=== PATIENT | male | born 1955 | race Caucasian/White ===

== ENCOUNTER 2019-08-18 15:36 | Emergency (ER) | payer OTHER, SELFPAY ==
[2019-08-18 15:41] VITALS: BP 185/97; PULSE 96; RESP 20; TEMP 36.8; O2SAT 99
--- NOTE | 2019-08-18 15:44 | DI.RAD.S_ITS ---
PROCEDURE: XR CHEST 1V INDICATIONS: palpatations TECHNIQUE: One view of the chest was acquired. COMPARISON: None. FINDINGS: Surgical changes and devices: None. Lungs and pleura: Lungs are clear. No pleural effusions or pneumothorax. Mediastinum: Mediastinal contours appear normal. Heart size is normal. Bones and chest wall: No suspicious bony lesions. Overlying soft tissues appear unremarkable. IMPRESSION: No acute cardiopulmonary process is evident. Dictated by: Jeff Raman M.D. on 08/18/2019 at 15:01 Approved by: Jeff Raman M.D. on 08/18/2019 at 15:10
[2019-08-18 16:06] VITALS: BP 194/93; PULSE 99; RESP 20; O2SAT 97
[2019-08-18 16:09] LABS: Add Manual Diff / Slide Review NO; Basophils Absolute Auto 100 /uL (0-100); Basophils Percent Auto 0.9 % (0-2); Eosinophils Absolute Auto 200 /uL (0-450); Eosinophils Percent Auto 3.4 % (2-4); Hematocrit 41.9 % (41-53); Hemoglobin 14.2 g/dL (13.5-17.5); Lymphocytes Absolute Auto 2100 /uL (1100-4500); Lymphocytes Percent Auto 31.3 % (25-40); Mean Corpuscular HGB Conc 33.9 % (30-36); Mean Corpuscular Hemoglobin 29.9 PG (26-34); Mean Corpuscular Volume 88.4 fL (80-100); Monocytes Absolute Auto 900 /uL (0-900); Monocytes Percent Auto 14.1 % (3-14); Neutrophils Absolute Auto 3300 /uL (1500-7000); Neutrophils Percent Auto 50.3 % (50-75); Platelet Count 182 X10^3/uL (150-400); Red Blood Cell Count 4.74 X10^6/uL (4.5-5.9); Red Cell Distribution Width 12.9 % (11.6-14.8); White Blood Cell Count 6.6 X10^3/uL (4.5-11.0)
--- NOTE | 2019-08-18 16:17 | ED_ITS ---
HPI - Arrhythmia/Palpitations <SANJEEV Negrete - Last Filed: 08/18/19 19:48> General Chief Complaint: Arrhythmia/Palpitations Stated Complaint: Buzzing in chest, don't feel right Time Seen by Provider: 08/18/19 15:52 Source: patient Mode of arrival: Ambulatory Limitations: no limitations History of Present Illness HPI narrative: The patient is a 63-year-old male with history of hypertension and appendicitis with surgery on 04/16 of last year who presents with a chief complaint of ?buzzing in my chest.He denies any chest pain, shortness of breath, fevers nausea vomiting or diarrhea. He states he generally just does not ?feel right and states he feels ?on edge since he woke up today. He takes lisinopril and atorvastatin daily, states he does not take any other medication s. He was recently treated for urinary tract infection, but states he felt like he was coming back a few days ago. He states he had finished his course of Macrobid, but then had an extra sample done to make sure that he had no infection. He states he recently drove from [place] at his other home to [facility] and arrived yesterday. He has been self isolating at home, denies any sick contacts. He states he is very active, rode bikes 6000 miles a year and swims a lot. He denies any specific pain, shortness of breath, nausea vomiting diarrhea abdominal pain swelling of the extremities were palpitations. He states he has a vague anxiety history. Related Data Previous Rx's Medication Instructions Recorded hydroxyzine pamoate 50 mg PO TID PRN #14 cap 08/18/19 Review of Systems <SANJEEV Negrete - Last Filed: 08/18/19 19:48> Review of Systems Narrative: GENERAL: Denies chills, fatigue, malaise, fever, sweats. HEENT: Denies sinus pain, ear pain, sore throat, difficulty swallowing, dizziness. RESPIRATORY: Denies dyspnea, cough, wheezing, hemoptysis, sputum. CARDIOVASCULAR: See HPI GASTROINTESTINAL: Denies nausea, vomiting, abdominal pain, diarrhea, constipation, melena. : Denies dysuria, frequency, incontinence, hematuria, urinary retention. MUSCULOSKELETAL: denies weakness, joint pain, or bony pain SKIN: Denies rash, skin lesions, or other NEUROLOGIC: Denies weakness, headache, numbness, change in speech, confusion, seizures, incoordination. PSYCHIATRIC: No concerning psychosocial issues. 12 point review of systems is negative except for those stated above Patient History <JENNIFER Negrete - Last Filed: 08/18/19 19:48> Social History Smoking Status: Never smoker Smoking Status: Never smoker Exam <JENNIFER Negrete - Last Filed: 08/18/19 19:48> Narrative Exam Narrative: GENERAL: This is a well-nourished, well-developed patient, appears anxious HEAD: Atraumatic. Normocephalic. No temporal or scalp tenderness. EYES: Pupils equal round and reactive. Extraocular motions intact. No scleral icterus. No injection or drainage. ENT: Nose without bleeding, purulent drainage or septal hematoma. Throat without erythema, tonsillar hypertrophy or exudate. Uvula midline. Airway patent. NECK: Trachea midline. No JVD or lymphadenopathy. Supple, nontender, no meningeal signs. CARDIOVASCULAR: Regular rate and rhythm without murmurs, gallops, or rubs. RESPIRATORY: Clear to auscultation. Breath sounds equal bilaterally. No wheezes, rales, or rhonchi. No cough. No increased respiratory effort accessory muscle use GASTROINTESTINAL: Abdomen soft, non-tender, nondistended. No hepato- splenomegaly, or palpable masses. No guarding. EXTREMITIES: No clubbing, cyanosis, or edema. No joint tenderness, effusion, or edema noted. BACK: Nontender without deformity or crepitance. No flank tenderness. NEURO: AOx3. SKIN: No rash or erythema. Initial Vital Signs Initial Vital Signs: Vital Signs Temperature 98.2 F 08/18/19 15:41 Pulse Rate 96 H 08/18/19 15:41 Respiratory Rate 08/18/19 15:41 Blood Pressure 185/97 H 08/18/19 15:41 Pulse Oximetry 99 08/18/19 15:41 <Gem Blanco DO - Last Filed: 08/22/19 07:14> Initial Vital Signs Initial Vital Signs: Vital Signs Temperature 98.2 F 08/18/19 15:41 Pulse Rate 96 H 08/18/19 15:41 Respiratory Rate 08/18/19 15:41 Blood Pressure 185/97 H 08/18/19 15:41 Pulse Oximetry 99 08/18/19 15:41 Scores <JENNIFER Negrete - Last Filed: 08/18/19 19:48> GCS Jay coma scale eye opening: Spontaneous Jay coma scale verbal response: Orientated [place] coma scale motor response: Obey commands Jay coma scale total score: 15 Course <JENNIFER Negrete - Last Filed: 08/18/19 19:48> Orders Ordered: Discontinued Medications Hydroxyzine Pamoate (Vistaril) 50 mg PO NOW ONE Stop: 08/18/19 17:02 Last Admin: 08/18/19 17:12 Dose: 50 mg Documented by: MYRNA Sodium Chloride (Normal Saline 0.9%) 1,000 mls @ 150 mls/hr IV CONT PEDRO Last Infusion: 08/18/19 19:35 Dose: 0 mls/hr Documented by: Admin: 08/18/19 17:13 Dose: 150 mls/hr Documented by: MYRNA Reevaluation(s) Reevaluation #1: Patient states that he feels much improved and feels like he is no longer ?buzzing? after a single dose of hydroxyzine. I discussed waiting for 2nd troponin to help rule out acute cardiac event. Patient states understanding. Discussed pending urine culture. Patient currently denies any urinary symptoms, we will wait for culture to treat. Patient is okay with this plan. Time: 18:00 Vital Signs Vital signs: Vital Signs - 8 hr 08/18/19 15:41 08/18/19 16:06 08/18/19 17:00 Temperature 98.2 F Pulse Rate 96 H 99 H 85 Respiratory Rate 20 20 12 Blood Pressure 185/97 H Blood Pressure [Right Arm] 194/93 H 157/70 H Pulse Oximetry 99 97 98 08/18/19 17:30 08/18/19 18:30 08/18/19 19:36 Temperature Pulse Rate 81 77 89 Respiratory Rate 16 17 19 Blood Pressure 145/66 H Blood Pressure [Right Arm] 144/69 H 135/64 Pulse Oximetry 98 97 98 <Gem Blanco DO - Last Filed: 08/22/19 07:14> Orders Ordered: Discontinued Medications Hydroxyzine Pamoate (Vistaril) 50 mg PO NOW ONE Stop: 08/18/19 17:02 Last Admin: 08/18/19 17:12 Dose: 50 mg Documented by: MYRNA Sodium Chloride (Normal Saline 0.9%) 1,000 mls @ 150 mls/hr IV CONT PEDRO Last Infusion: 08/18/19 19:35 Dose: 0 mls/hr Documented by: Admin: 08/18/19 17:13 Dose: 150 mls/hr Documented by: MYRNA Vital Signs Vital signs: Vital Signs - 8 hr 08/18/19 15:41 08/18/19 16:06 08/18/19 17:00 Temperature 98.2 F Pulse Rate 96 H 99 H 85 Respiratory Rate 20 20 12 Blood Pressure 185/97 H Blood Pressure [Right Arm] 194/93 H 157/70 H Pulse Oximetry 99 97 98 08/18/19 17:30 08/18/19 18:30 08/18/19 19:36 Temperature Pulse Rate 81 77 89 Respiratory Rate 16 17 19 Blood Pressure 145/66 H Blood Pressure [Right Arm] 144/69 H 135/64 Pulse Oximetry 98 97 98 MDM - Arrhythmia/Palpitations <JENNIFER Negrete - Last Filed: 08/18/19 19:48> Lab Data Attestation: I reviewed the patient's lab results. Result diagrams: 08/18/19 15:58 08/18/19 15:58 Labs: Lab Results 08/18/19 08/18/19 08/18/19 Range/Units 15:58 15:58 15:58 WBC 6.6 (4.5-11.0) X10^3/uL RBC 4.74 (4.5-5.9) X10^6/uL Hgb 14.2 (13.5-17.5) g/dL Hct 41.9 (41-53) % MCV 88.4 (80-100) fL MCH 29.9 (26-34) PG MCHC 33.9 (30-36) % RDW 12.9 (11.6-14.8) % Plt Count 182 (150-400) X10^3/uL Neut % (Auto) 50.3 (50-75) % Lymph % (Auto) 31.3 (25-40) % Jerome % (Auto) 14.1 H (3-14) % Eos % (Auto) 3.4 (2-4) % Baso % (Auto) 0.9 (0-2) % Neut # (Auto) 3300 (9006-6159) /uL Lymph # (Auto) 2100 (0930-2743) /uL Jerome # (Auto) 900 (0-900) /uL Eos # (Auto) 200 (0-450) /uL Baso # (Auto) 100 (0-100) /uL D-Dimer (<230) ng/mL Sodium 137 (137-145) mmol/L Potassium 3.9 (3.4-5.1) mmol/L Chloride 103 (98-107) mmol/L Carbon Dioxide 24 (22-32) mmol/L BUN 16 (9-20) mg/dL Creatinine 0.90 (0.66-1.25) mg/dL Estimated GFR > 60.0 (>60) mL/min BUN/Creatinine Ratio 17.8 (6-22) Glucose 91 (80-110) mg/dL Calcium 9.3 (8.4-10.2) mg/dL Total Bilirubin 0.6 (0.2-1.3) mg/dL AST 37 (17-59) IU/L ALT 29 (<50) IU/L Alkaline Phosphatase 69 (38-126) U/L Total Creatine Kinase 150 (55-170) U/L CK-MB (CK-2) 2.20 (<2.37) ng/mL CK-MB (CK-2) Rel Index 1.5 (1.5-5.0) % Troponin I < 0.012 (0.01-0.034) ng/mL NT-Pro-B Natriuret Pep 43 (<125) pg/mL Total Protein 8.7 H (6.3-8.2) g/dL Albumin 5.0 (3.5-5.0) g/dL Globulin 3.7 (1.7-4.1) g/dL Albumin/Globulin Ratio 1.4 (1.0-2.8) Lipase 213 (23-300) U/L Urine RBC (0-5/HPF) Urine WBC (0-5/HPF) Ur Squamous Epith Cells (0-5/HPF) Urine Bacteria (None) Ur Culture Indicated? 08/18/19 08/18/19 08/18/19 Range/Units 15:58 16:15 18:15 WBC (4.5-11.0) X10^3/uL RBC (4.5-5.9) X10^6/uL Hgb (13.5-17.5) g/dL Hct (41-53) % MCV (80-100) fL MCH (26-34) PG MCHC (30-36) % RDW (11.6-14.8) % Plt Count (150-400) X10^3/uL Neut % (Auto) (50-75) % Lymph % (Auto) (25-40) % Jerome % (Auto) (3-14) % Eos % (Auto) (2-4) % Baso % (Auto) (0-2) % Neut # (Auto) (6774-1484) /uL Lymph # (Auto) (9640-6924) /uL Jerome # (Auto) (0-900) /uL Eos # (Auto) (0-450) /uL Baso # (Auto) (0-100) /uL D-Dimer < 200 (<230) ng/mL Sodium (137-145) mmol/L Potassium (3.4-5.1) mmol/L Chloride (98-107) mmol/L Carbon Dioxide (22-32) mmol/L BUN (9-20) mg/dL Creatinine (0.66-1.25) mg/dL Estimated GFR (>60) mL/min BUN/Creatinine Ratio (6-22) Glucose (80-110) mg/dL Calcium (8.4-10.2) mg/dL Total Bilirubin (0.2-1.3) mg/dL AST (17-59) IU/L ALT (<50) IU/L Alkaline Phosphatase (38-126) U/L Total Creatine Kinase 135 (55-170) U/L CK-MB (CK-2) 1.92 (<2.37) ng/mL CK-MB (CK-2) Rel Index 1.4 L (1.5-5.0) % Troponin I < 0.012 (0.01-0.034) ng/mL NT-Pro-B Natriuret Pep (<125) pg/mL Total Protein (6.3-8.2) g/dL Albumin (3.5-5.0) g/dL Globulin (1.7-4.1) g/dL Albumin/Globulin Ratio (1.0-2.8) Lipase (23-300) U/L Urine RBC None seen (0-5/HPF) Urine WBC 1-5/hpf (0-5/HPF) Ur Squamous Epith Cells 0-1 /hpf (0-5/HPF) Urine Bacteria Occasional (0-1) (None) Ur Culture Indicated? Specimen cultured Urine Dip Bedside Urine Glucose Negative Bedside Urine Bilirubin - Negative Bedside Urine Ketone - Negative Urine Specific Lamont 1.010 Bedside Urine Occult Blood - Negative Bedside Urine pH 6.0 Bedside Urine Protein - Negative Bedside Urine Urobilinogen - Negative Bedside Urine Nitrite - Negative Bedside Urine Leukocytes +/- 15 Esterase Imaging Data Chest x-ray: Attestation: I personally reviewed and interpreted this imaging study as follows: Radiologist's Impresson: [address] [place] [id number] XRay Report Signed Patient: Steve BunnMR#: [id number] : 8Acct:[id number] Age/Sex: 63 / MDate of Service: 08/18/19 Loc: ED Accession Number: [id number] Procedure: XR chest 1V Ordering Provider: Gem Blanco D.O. PROCEDURE: XR CHEST 1V INDICATIONS: palpatations TECHNIQUE: One view of the chest was acquired. COMPARISON: None. FINDINGS: Surgical changes and devices: None. Lungs and pleura: Lungs are clear. No pleural effusions or pneumothorax. Mediastinum: Mediastinal contours appear normal. Heart size is normal. Bones and chest wall: No suspicious bony lesions. Overlying soft tissues appear unremarkable. IMPRESSION: No acute cardiopulmonary process is evident. Dictated by: Jeff Raman M.D. on 08/18/2019 at 15:01 Approved by: Jeff Raman M.D. on 08/18/2019 at 15:10 ECG Data Attestation: I personally reviewed and interpreted this ECG as follows: Interpretation: Sinus tachycardia. Ventricular rate 102. P.r. interval 188. QRS duration 92. viewed by Dr Blanco [facility] Narrative Medical decision making narrative: The patient is a 63-year-old male who presents with a chief complaint of ?buzzing in my chest.His EKG shows no acute findings, his initial troponin is negative. I did try a dose of hydroxyzine as the patient stated he had some anxiety and that helped improve the bulging in his chest. His 2nd troponin also came back negative. Chest x-ray shows no acute findings. Given his recent travel, did get a D-dimer to evaluate for PE which came back negative. I discussed at length coming back to the emergency department for any acute concerns of following up with primary care provider in the next 3 days. Of note the patient's urine is going for culture, though he has no symptoms at this point time so we will hold off on culture for treatment. Patient has no questions or concerns upon discharge and states understanding of return precautions as well as follow-up care. <Gem Blanco, DO - Last Filed: 08/22/19 07:14> Lab Data Labs: Lab Results 08/18/19 08/18/19 08/18/19 Range/Units 15:58 15:58 15:58 WBC 6.6 (4.5-11.0) X10^3/uL RBC 4.74 (4.5-5.9) X10^6/uL Hgb 14.2 (13.5-17.5) g/dL Hct 41.9 (41-53) % MCV 88.4 (80-100) fL MCH 29.9 (26-34) PG MCHC 33.9 (30-36) % RDW 12.9 (11.6-14.8) % Plt Count 182 (150-400) X10^3/uL Neut % (Auto) 50.3 (50-75) % Lymph % (Auto) 31.3 (25-40) % Jerome % (Auto) 14.1 H (3-14) % Eos % (Auto) 3.4 (2-4) % Baso % (Auto) 0.9 (0-2) % Neut # (Auto) 3300 (8169-5802) /uL Lymph # (Auto) 2100 (9180-9289) /uL Jerome # (Auto) 900 (0-900) /uL Eos # (Auto) 200 (0-450) /uL Baso # (Auto) 100 (0-100) /uL D-Dimer (<230) ng/mL Sodium 137 (137-145) mmol/L Potassium 3.9 (3.4-5.1) mmol/L Chloride 103 (98-107) mmol/L Carbon Dioxide 24 (22-32) mmol/L BUN 16 (9-20) mg/dL Creatinine 0.90 (0.66-1.25) mg/dL Estimated GFR > 60.0 (>60) mL/min BUN/Creatinine Ratio 17.8 (6-22) Glucose 91 (80-110) mg/dL Calcium 9.3 (8.4-10.2) mg/dL Total Bilirubin 0.6 (0.2-1.3) mg/dL AST 37 (17-59) IU/L ALT 29 (<50) IU/L Alkaline Phosphatase 69 (38-126) U/L Total Creatine Kinase 150 (55-170) U/L CK-MB (CK-2) 2.20 (<2.37) ng/mL CK-MB (CK-2) Rel Index 1.5 (1.5-5.0) % Troponin I < 0.012 (0.01-0.034) ng/mL NT-Pro-B Natriuret Pep 43 (<125) pg/mL Total Protein 8.7 H (6.3-8.2) g/dL Albumin 5.0 (3.5-5.0) g/dL Globulin 3.7 (1.7-4.1) g/dL Albumin/Globulin Ratio 1.4 (1.0-2.8) Lipase 213 (23-300) U/L Urine RBC (0-5/HPF) Urine WBC (0-5/HPF) Ur Squamous Epith Cells (0-5/HPF) Urine Bacteria (None) Ur Culture Indicated? 08/18/19 08/18/19 08/18/19 Range/Units 15:58 16:15 18:15 WBC (4.5-11.0) X10^3/uL RBC (4.5-5.9) X10^6/uL Hgb (13.5-17.5) g/dL Hct (41-53) % MCV (80-100) fL MCH (26-34) PG MCHC (30-36) % RDW (11.6-14.8) % Plt Count (150-400) X10^3/uL Neut % (Auto) (50-75) % Lymph % (Auto) (25-40) % Jerome % (Auto) (3-14) % Eos % (Auto) (2-4) % Baso % (Auto) (0-2) % Neut # (Auto) (6540-2296) /uL Lymph # (Auto) (0516-7367) /uL Jerome # (Auto) (0-900) /uL Eos # (Auto) (0-450) /uL Baso # (Auto) (0-100) /uL D-Dimer < 200 (<230) ng/mL Sodium (137-145) mmol/L Potassium (3.4-5.1) mmol/L Chloride (98-107) mmol/L Carbon Dioxide (22-32) mmol/L BUN (9-20) mg/dL Creatinine (0.66-1.25) mg/dL Estimated GFR (>60) mL/min BUN/Creatinine Ratio (6-22) Glucose (80-110) mg/dL Calcium (8.4-10.2) mg/dL Total Bilirubin (0.2-1.3) mg/dL AST (17-59) IU/L ALT (<50) IU/L Alkaline Phosphatase (38-126) U/L Total Creatine Kinase 135 (55-170) U/L CK-MB (CK-2) 1.92 (<2.37) ng/mL CK-MB (CK-2) Rel Index 1.4 L (1.5-5.0) % Troponin I < 0.012 (0.01-0.034) ng/mL NT-Pro-B Natriuret Pep (<125) pg/mL Total Protein (6.3-8.2) g/dL Albumin (3.5-5.0) g/dL Globulin (1.7-4.1) g/dL Albumin/Globulin Ratio (1.0-2.8) Lipase (23-300) U/L Urine RBC None seen (0-5/HPF) Urine WBC 1-5/hpf (0-5/HPF) Ur Squamous Epith Cells 0-1 /hpf (0-5/HPF) Urine Bacteria Occasional (0-1) (None) Ur Culture Indicated? Specimen cultured Urine Dip Bedside Urine Glucose Negative Bedside Urine Bilirubin - Negative Bedside Urine Ketone - Negative Urine Specific Lamont 1.010 Bedside Urine Occult Blood - Negative Bedside Urine pH 6.0 Bedside Urine Protein - Negative Bedside Urine Urobilinogen - Negative Bedside Urine Nitrite - Negative Bedside Urine Leukocytes +/- 15 Esterase Discharge Plan Departure Patient Disposition: Home Clinical Impression: Atypical chest pain Discharge Date/Time: 08/18/19 19:37 Instructions: DI for Atypical Chest Pain, DI for Anxiety -- Adult, DI for Chest Pain Activity Restrictions/Additional Instructions: Thank you for trusting us with your care today. I am not exactly sure why you had a buzzing sensation in your chest. Today your evaluation came back well your lab work had no acute findings, your chest x-ray came back well, your blood clot test came back negative. I sent a prescription of hydroxyzine for anxiety to [facility] in [place] as that seemed to help you relax today Please come back to emergency department for any acute concerns such as chest pain, shortness of breath, concern of heart attack stroke etcetera Please follow-up with primary care provider in the next few days Prescriptions: New hydroxyzine pamoate 50 mg capsule 50 mg PO TID PRN (Reason: anxiety) Qty: 14 RF: 0
[2019-08-18 16:24] LABS: Alanine Aminotransferase 29 IU/L (<50); Albumin Globulin Ratio 1.4 (1.0-2.8); Alkaline Phosphatase 69 U/L (38-126); Aspartate Aminotransferase 37 IU/L (17-59); BUN Creatinine Ratio 17.8 (6-22); Bilirubin Total 0.6 mg/dL (0.2-1.3); Blood Urea Nitrogen 16 mg/dL (9-20); Calcium 9.3 mg/dL (8.4-10.2); Carbon Dioxide 24 mmol/L (22-32); Chloride 103 mmol/L (98-107); Creatine Kinase 150 U/L (55-170); Estimated Glomerular Filt Rate > 60.0 mL/min (>60); Globulin 3.7 g/dL (1.7-4.1); Glucose 91 mg/dL (80-110); HEMOLYSIS 33 (0-50); Lipase 213 U/L (23-300); Potassium 3.9 mmol/L (3.4-5.1); Sodium 137 mmol/L (137-145); Total Protein 8.7 g/dL (6.3-8.2)
[2019-08-18 16:29] LABS: D Dimer < 200 ng/mL (<230)
[2019-08-18 16:29] LABS: RBC Urine None Seen (0-5/HPF)
[2019-08-18 16:33] LABS: NT-proBNP (BNP-Adult 18+) 43 pg/mL (<125)
[2019-08-18 16:36] LABS: Troponin I < 0.012 ng/mL (0.01-0.034)
[2019-08-18 16:37] LABS: Bacteria Urine Occasional (0-1); Culture Indicated Urine Specimen Cultured; Squamous Epithelial Cell Urine 0-1 /HPF (0-5/HPF); WBC Urine 1-5/HPF (0-5/HPF)
[2019-08-18 16:39] LABS: CKMB % Relative Index 1.5 % (1.5-5.0)
[2019-08-18 17:00] VITALS: BP 157/70; PULSE 85; RESP 12; O2SAT 98
[2019-08-18] MEDS: hydrOXYzine pamoate 25 MG CAPSULE 50 MG PO (17:12)
[2019-08-18] MEDS: SODIUM CHLORIDE 0.9% 1,000 ML 150 ML IV (17:13)
[2019-08-18 17:30] VITALS: BP 144/69; PULSE 81; RESP 16; O2SAT 98
[2019-08-18 18:30] VITALS: BP 135/64; PULSE 77; RESP 17; O2SAT 97
[2019-08-18 18:47] LABS: Creatine Kinase 135 U/L (55-170)
[2019-08-18 19:00] LABS: Troponin I < 0.012 ng/mL (0.01-0.034)
[2019-08-18 19:03] LABS: CKMB % Relative Index 1.4 % (1.5-5.0); Creatine Kinase MB 1.92 ng/mL (<2.37)
[2019-08-18 19:36] VITALS: BP 145/66; PULSE 89; RESP 19; O2SAT 98
== END 2019-08-18 19:37 | disposition home or self-care (01) ==
PROVIDERS: Emergency Medicine; Emergency Provider Nurse Practitioner Family
DX: R07.89 Other chest pain (principal); R00.2 Palpitations; I10 Essential (primary) hypertension
CPT/HCPCS: 36415; 71045; 80053; 81003; 81015; 82550; 82553; 83690; 83880; 84484; 85025; 85379; 87086; 93005; 96360; 96361; 99284

== ENCOUNTER → 2020-01-20 13:46 | Outpatient (CLI) | payer OTHER, SELFPAY | PROVIDERS: Visit Provider Physician Assistant | DX: R30.0 Dysuria (principal) | CPT/HCPCS: 87086 ==

== ENCOUNTER 2023-02-22 07:36 | Emergency (ER) | payer MEDICARE, OTHER, SELFPAY ==
[2023-02-22 07:54] VITALS: PULSE 91; RESP 18; O2SAT 97
--- NOTE | 2023-02-22 07:56 | ED_ITS ---
HPI - General Adult General Chief complaint: Chest Pain Stated complaint: SOB/ chest pain Time Seen by Provider: 02/22/23 07:52 Source: patient Mode of arrival: Ambulatory Limitations: no limitations History of Present Illness HPI narrative: Patient is a 67-year-old male who for the past several days has had chest discomfort and progressively worsening shortness of breath. He denies cough, no sore throat, he did have some chills last evening but no specific fevers. He states he has had chest discomfort in the past and has a has been attributed to anxiety. He does state that he is under quite a bit of anxiety as his has been the last month in the hospital. He contacted his doctor who advised that he come to the emergency department for evaluation. Last Monday he was having chest discomfort and was evaluated by EMS. He states they did an EKG however was not transported to the hospital. He denies any lower extremity swelling. No abdominal pain, nausea vomiting or urinary symptoms. Related Data Home Medications Medication Instructions Recorded Confirmed lisinopril 10 mg tablet 10 mg PO BID 08/21/20 08/21/20 rosuvastatin 20 mg tablet 20 mg PO DAILY 08/21/20 08/21/20 Allergies Allergy/AdvReac Type Severity Reaction Status Date / Time No Known Drug Allergies Allergy Verified 08/21/20 14:59 Review of Systems Constitutional Constitutional: Reports system reviewed and no additional complaints, except as documented Cardiovascular Cardiovascular: Reports system reviewed and no additional complaints, except as documented Respiratory Respiratory: Reports system reviewed and no additional complaints, except as documented Gastrointestinal Gastrointestinal: Reports system reviewed and no additional complaints, except as documented Genitourinary Genitourinary: Reports system reviewed and no additional complaints, except as documented Integumentary/Breasts Skin/Breast: Reports system reviewed and no additional complaints, except as documented Neurologic Neurologic: Reports system reviewed and no additional complaints, except as documented Hematologic/Lymphatic On Anticoagulants: No Patient History Surgical History (Updated 09/13/20 @ 20:59 by Jazmine Maldonado) Anesthesia S/P appendectomy (04/16/19) Family History Father Heart disease Mother No problems noted. Social History Smoking Status: Never smoker Smoking Status: Never smoker Exam Initial Vital Signs Initial Vital Signs: Vital Signs Temperature 98.3 F 02/22/23 08:05 Pulse Rate 86 02/22/23 08:05 Respiratory Rate 18 02/22/23 08:05 Blood Pressure 160/91 H 02/22/23 08:05 Pulse Oximetry 97 02/22/23 08:05 Oxygen Delivery Method Room Air 02/22/23 08:05 Const General: cooperative, comfortable and No ill appearing HENMT Head: normal to inspection and normocephalic Resp Effort & Inspection: normal respiratory effort Auscultation: clear to auscultation bilaterally Cardio Rate: regular rate Rhythm: regular rhythm GI Inspection: normal to inspection Skin General: no rashes or lesions noted Neuro General: patient alert, patient awake and moves all extremities Extrem General: No edema Scores HEART Score Heart Score history: Slightly Suspicious Heart Score EKG: Normal Heart Score Age: > or = 65 years old Heart Score risk factors: 1-2 risk factors Heart Score troponin: < or = to normal limit Heart Score Total: 3 Course Orders Ordered: ED Orders 02/22/23 07:54 Complete Blood Count AUTO DIFF Stat Comprehensive Metabolic Panel Stat D Dimer Stat Lipase Stat Troponin & CK Cardiac Panel Stat 02/22/23 07:56 XR chest 1V Stat EKG-12 Lead Stat 02/22/23 08:16 Covid-19 + FLU A/B + RSV - PCR Stat Vital Signs Vital signs: Vital Signs - 8 hr 02/22/23 08:05 Temperature 98.3 F Pulse Rate 86 Respiratory Rate 18 Blood Pressure 160/91 H Pulse Oximetry 97 Oxygen Delivery Method Room Air Medical Decision Making Lab Data Lab results reviewed: Yes I reviewed the patient's lab results. 02/22/23 07:54 02/22/23 07:54 Labs: Lab Results 02/22/23 02/22/23 Range/Units 07:54 08:16 WBC 7.6 (4.5-11.0) X10^3/uL RBC 5.01 (4.5-5.9) X10^6/uL Hgb 15.2 (13.5-17.5) g/dL Hct 43.3 (41-53) % MCV 86.5 (80-100) fL MCH 30.3 (26-34) PG MCHC 35.0 (30-36) % RDW 12.4 (11.6-14.8) % Plt Count 211 (150-400) X10^3/uL Neut % (Auto) 61.0 (50-75) % Lymph % (Auto) 25.7 (25-40) % Phillips % (Auto) 10.3 (3-14) % Eos % (Auto) 2.2 (2-4) % Baso % (Auto) 0.8 (0-2) % Neut # (Auto) 4700 (4293-7232) /uL Lymph # (Auto) 2000 (0954-3752) /uL Phillips # (Auto) 800 (0-900) /uL Eos # (Auto) 200 (0-450) /uL Baso # (Auto) 100 (0-100) /uL D-Dimer < 215 (<500) ng/ml Sodium 136 L (137-145) mmol/L Potassium 3.9 (3.4-5.1) mmol/L Chloride 102 (98-107) mmol/L Carbon Dioxide 25 (22-32) mmol/L BUN 15 (9-20) mg/dL Creatinine 0.85 (0.66-1.25) mg/dL Estimated GFR > 60 (>60) mL/min BUN/Creatinine Ratio 17.6 (6-22) Glucose 100 (80-110) mg/dL Calcium 9.8 (8.4-10.2) mg/dL Total Bilirubin 0.8 (0.2-1.3) mg/dL AST 28 (17-59) IU/L ALT 30 (<50) IU/L Alkaline Phosphatase 57 (38-126) U/L Total Creatine Kinase 164 (55-170) U/L Troponin I < 0.012 (0.01-0.034) ng/mL Total Protein 8.2 (6.3-8.2) g/dL Albumin 4.7 (3.5-5.0) g/dL Globulin 3.5 (1.7-4.1) g/dL Albumin/Globulin Ratio 1.3 (1.0-2.8) Lipase 241 (23-300) U/L SARS-CoV-2 (PCR) Negative (Negative) Influenza A (RT-PCR) Flu a negative (NEGATIVE) Influenza B (RT-PCR) Flu b negative (NEGATIVE) RSV (PCR) Negative (Negative) Imaging Data Chest x-ray: Radiologist's Impression: PROCEDURE: XR CHEST 1V INDICATIONS: SOB TECHNIQUE: One view of the chest was acquired. COMPARISON: [facility], CR, XR CHEST 1V, 08/18/2019, 15:49. FINDINGS: Surgical changes and devices: None. Lungs and pleura: Lungs are clear. No pleural effusions or pneumothorax. Mediastinum: Mediastinal contours appear normal. Heart size is normal. Bones and chest wall: No suspicious bony lesions. Overlying soft tissues appear unremarkable. IMPRESSION: Portable chest within normal limits for age. ECG Data Attestation: I personally reviewed and interpreted this ECG as follows: Interpretation: Sinus rhythm Ventricular rate 84 LVH Left axis deviation No ST T wave changes MDM Narrative Medical decision making narrative: Patient has had chest pain for the past several days. Low risk heart score. D- dimer is negative. No signs of pneumonia. Low suspicion for ACS. Electrolytes are unremarkable. COVID is negative. No indication for antibiotics. Had a discussion with him regarding his symptoms. I do suspect that there is a anxiety component. He does currently see a therapist. Will have him continue all of his medications. He was given return precautions. He expressed understanding and agreement. Discharge Plan Departure Patient Disposition: Home Clinical Impression: Atypical chest pain, Shortness of breath Instructions: DI for Atypical Chest Pain Activity Restrictions/Additional Instructions: Recommend you continue to take all of your medications as directed. Contact your primary doctor for follow-up. Return to the emergency department for new or worsening symptoms. Prescriptions: No Action rosuvastatin 20 mg TABLET 20 mg PO DAILY lisinopril 10 mg tablet 10 mg PO BID Referrals: Miscellaneous,MD Shaila [Primary Care Provider] - Stand Alone Forms: Patient Portal/API
[2023-02-22 08:00] VITALS: BP 133/81; PULSE 83; RESP 16; O2SAT 97
[2023-02-22 08:05] VITALS: BP 160/91; PULSE 86; RESP 18; TEMP 36.8; O2SAT 97; BMI 32.1
[2023-02-22 08:05] LABS: Add Manual Diff / Slide Review NO; Basophils Absolute Auto 100 /uL (0-100); Basophils Percent Auto 0.8 % (0-2); Eosinophils Absolute Auto 200 /uL (0-450); Eosinophils Percent Auto 2.2 % (2-4); Hematocrit 43.3 % (41-53); Hemoglobin 15.2 g/dL (13.5-17.5); Lymphocytes Absolute Auto 2000 /uL (1100-4500); Lymphocytes Percent Auto 25.7 % (25-40); Mean Corpuscular Hemoglobin 30.3 PG (26-34); Mean Corpuscular Volume 86.5 fL (80-100); Monocytes Absolute Auto 800 /uL (0-900); Monocytes Percent Auto 10.3 % (3-14); Neutrophils Absolute Auto 4700 /uL (1500-7000); Platelet Count 211 X10^3/uL (150-400); Red Blood Cell Count 5.01 X10^6/uL (4.5-5.9); Red Cell Distribution Width 12.4 % (11.6-14.8); White Blood Cell Count 7.6 X10^3/uL (4.5-11.0)
[2023-02-22 08:15] LABS: Alanine Aminotransferase 30 IU/L (<50); Albumin 4.7 g/dL (3.5-5.0); Albumin Globulin Ratio 1.3 (1.0-2.8); Alkaline Phosphatase 57 U/L (38-126); Aspartate Aminotransferase 28 IU/L (17-59); BUN Creatinine Ratio 17.6 (6-22); Bilirubin Total 0.8 mg/dL (0.2-1.3); Blood Urea Nitrogen 15 mg/dL (9-20); Calcium 9.8 mg/dL (8.4-10.2); Carbon Dioxide 25 mmol/L (22-32); Chloride 102 mmol/L (98-107); Creatine Kinase 164 U/L (55-170); Estimated Glomerular Filt Rate > 60 mL/min (>60); Globulin 3.5 g/dL (1.7-4.1); Glucose 100 mg/dL (80-110); HEMOLYSIS < 15 (0-50); Lipase 241 U/L (23-300); Potassium 3.9 mmol/L (3.4-5.1); Sodium 136 mmol/L (137-145); Total Protein 8.2 g/dL (6.3-8.2)
[2023-02-22 08:26] LABS: Troponin I < 0.012 ng/mL (0.01-0.034)
[2023-02-22 08:30] VITALS: BP 124/76; PULSE 73; RESP 14; O2SAT 97
[2023-02-22 09:00] VITALS: BP 118/71; PULSE 73; RESP 16; O2SAT 95
[2023-02-22 09:01] LABS: COVID-19 CEPHEID 4-PLEX PCR Negative (Negative); Influenza A - CEPHEID Flu A NEGATIVE (NEGATIVE); Influenza B - CEPHEID Flu B NEGATIVE (NEGATIVE); Respiratory Syncytial Virus Negative (Negative)
[2023-02-22 09:08] LABS: D Dimer < 215 ng/ml (<500)
[2023-02-22 09:30] VITALS: BP 122/74; PULSE 77; RESP 19; O2SAT 95
== END 2023-02-22 09:40 | disposition home or self-care (01) ==
PROVIDERS: Emergency Provider Emergency Medicine; PCP Family Medicine
DX: R07.89 Other chest pain (principal); R06.02 Shortness of breath; Z20.822 Contact with and (suspected) exposure to COVID-19
CPT/HCPCS: 0241U; 36415; 71045; 80053; 82550; 83690; 84484; 85025; 85379; 93005; 99284

== ENCOUNTER 2023-03-01 20:17 | Emergency (ER) | payer MEDICARE, OTHER, SELFPAY ==
[2023-03-01 20:25] VITALS: BP 155/80; PULSE 89; RESP 18; TEMP 36.6; O2SAT 97; BMI 32.1
[2023-03-01] MEDS: IBUPROFEN 400 MG TABLET 800 MG PO (21:59)
[2023-03-01 22:25] LABS: Add Manual Diff / Slide Review NO; Basophils Absolute Auto 100 /uL (0-100); Basophils Percent Auto 1.1 % (0-2); Eosinophils Absolute Auto 200 /uL (0-450); Eosinophils Percent Auto 2.3 % (2-4); Hematocrit 42.1 % (41-53); Hemoglobin 14.8 g/dL (13.5-17.5); Lymphocytes Absolute Auto 2100 /uL (1100-4500); Lymphocytes Percent Auto 23.6 % (25-40); Mean Corpuscular HGB Conc 35.1 % (30-36); Mean Corpuscular Hemoglobin 30.5 PG (26-34); Mean Corpuscular Volume 86.8 fL (80-100); Monocytes Absolute Auto 900 /uL (0-900); Monocytes Percent Auto 10.6 % (3-14); Neutrophils Absolute Auto 5500 /uL (1500-7000); Neutrophils Percent Auto 62.4 % (50-75); Platelet Count 219 X10^3/uL (150-400); Red Blood Cell Count 4.84 X10^6/uL (4.5-5.9); Red Cell Distribution Width 12.7 % (11.6-14.8); White Blood Cell Count 8.8 X10^3/uL (4.5-11.0)
[2023-03-01 22:30] LABS: Alanine Aminotransferase 29 IU/L (<50); Albumin 4.8 g/dL (3.5-5.0); Albumin Globulin Ratio 1.3 (1.0-2.8); Alkaline Phosphatase 59 U/L (38-126); Aspartate Aminotransferase 26 IU/L (17-59); BUN Creatinine Ratio 20.8 (6-22); Bilirubin Total 0.5 mg/dL (0.2-1.3); Blood Urea Nitrogen 16 mg/dL (9-20); Calcium 9.4 mg/dL (8.4-10.2); Carbon Dioxide 24 mmol/L (22-32); Chloride 102 mmol/L (98-107); Estimated Glomerular Filt Rate > 60 mL/min (>60); Globulin 3.6 g/dL (1.7-4.1); Glucose 115 mg/dL (80-110); HEMOLYSIS 21 (0-50); Potassium 3.7 mmol/L (3.4-5.1); Sodium 137 mmol/L (137-145); Total Protein 8.4 g/dL (6.3-8.2)
[2023-03-01 22:56] LABS: Erythrocyte Sedimentation Rate 8 MM/HR (0-15)
[2023-03-01 23:29] LABS: C-Reactive Protein Quant 0.5 mg/dL (<1.0)
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
--- NOTE | 2023-03-02 00:53 | DI.CT.S_ITS ---
PROCEDURE: CT HEAD/BRAIN WO CON INDICATIONS: solares for several days TECHNIQUE: Noncontrast 4.5 mm thick angled axial sections acquired from the foramen magnum to the vertex, with coronal and sagittal reformats. For radiation dose reduction, the following was used: automated exposure control, adjustment of mA and/or kV according to patient size. COMPARISON: None. FINDINGS: Image quality: Excellent. CSF spaces: Basal cisterns are patent. No extra-axial fluid collections. Ventricles are normal in size and shape. Brain: No midline shift. No intracranial masses or hemorrhage. Stokes-white matter interface is normal. Skull and face: Calvarium and visualized facial bones are intact, without suspicious lesions. Sinuses: Polypoidal mucosal thickening versus mucous retention cyst in the right maxillary sinus. IMPRESSION: No acute intracranial pathology. Polypoidal mucosal thickening versus mucous retention cyst in the right maxillary sinus. Dictated by: Goldy Franklin M.D. on 03/02/2023 at 1:21 Approved by: Goldy Franklin M.D. on 03/02/2023 at 1:23
[2023-03-02 00:56] VITALS: BP 161/85; PULSE 70; O2SAT 98
[2023-03-02 01:04] VITALS: PULSE 81; O2SAT 98
[2023-03-02 01:05] VITALS: PULSE 78; O2SAT 98
[2023-03-02 01:15] VITALS: BP 187/93; PULSE 88; O2SAT 98
[2023-03-02 01:30] VITALS: BP 168/101; PULSE 84; O2SAT 98
== END 2023-03-02 01:57 | disposition home or self-care (01) ==
PROVIDERS: Emergency Provider Emergency Medicine; PCP Family Medicine
DX: R51.9 Headache, unspecified (principal); J34.1 Cyst and mucocele of nose and nasal sinus
CPT/HCPCS: 70450; 80053; 85025; 85651; 86140; 99284